=== PATIENT | female | born 1940 | race Native Hawaiian/Other Pacific Islander ===

== ENCOUNTER 2016-02-25 14:12 | Emergency (ER) | payer OTHER ==
[~2016-02-25] VITALS: Ht 157.5 cm; Wt 59.0 kg
[2016-02-25 14:37] LABS: PLATELET COUNT 202 K/uL (152-353)
[2016-02-25 14:45] LABS: POTASSIUM 4.2 mmol/L (3.6-5.2); SODIUM 136 mmol/L (136-145)
[2016-02-25 16:30] LABS: PARTIAL THROMBOPLASTIN TIME 31.9 SECONDS (24.5-33.6)
[2016-02-25 16:45] VITALS: BP 145/74; TEMP 98
== END 2016-02-25 16:55 | disposition home or self-care (01) ==
LOC: ED 14:12
DX: R55 Syncope and collapse (principal)
CPT/HCPCS: 36415; 80053; 82550; 84484; 85027; 85610; 85730; 93005; 99284

== ENCOUNTER 2016-03-02 08:51 | Outpatient (CLI) | payer OTHER ==
[2016-03-02 09:11] LABS: PLATELET COUNT 190 K/uL (152-353)
[2016-03-02 09:37] LABS: POTASSIUM 4.5 mmol/L (3.6-5.2)
== END 2016-03-02 20:47 | disposition home or self-care (01) ==
LOC: LABW 08:51
PROVIDERS: Internal Medicine Nephrology
DX: I12.9 Hypertensive chronic kidney disease with stage 1 through stage 4 chronic kidney disease, or unspecified chronic kidney disease (principal); N18.3 Chronic kidney disease, stage 3 (moderate); E78.4 Other hyperlipidemia; Z09 Encounter for follow-up examination after completed treatment for conditions other than malignant neoplasm
CPT/HCPCS: 36415; 80048; 80061; 80076; 84100; 85027

== ENCOUNTER 2016-05-21 09:14 | Outpatient (CLI) | payer OTHER ==
[2016-05-21 11:26] LABS: POTASSIUM 4.6 mmol/L (3.6-5.2)
== END 2016-05-21 19:11 | disposition home or self-care (01) ==
LOC: LABW 09:14
PROVIDERS: Internal Medicine Nephrology
DX: N18.3 Chronic kidney disease, stage 3 (moderate) (principal)
CPT/HCPCS: 36415; 80048

== ENCOUNTER 2016-05-31 08:13 | Outpatient (CLI) | payer OTHER | END 2016-05-31 19:30 | disposition home or self-care (01) | LOC: LABW 08:13 | DX: E01.8 Other iodine-deficiency related thyroid disorders and allied conditions (principal) | CPT/HCPCS: 36415; 84439; 84443 ==

== ENCOUNTER 2016-09-17 08:17 | Outpatient (CLI) | payer OTHER ==
[2016-09-17 10:06] LABS: PLATELET COUNT 180 K/uL (152-353)
[2016-09-17 10:44] LABS: POTASSIUM 3.6 mmol/L (3.6-5.2)
== END 2016-09-17 19:19 | disposition home or self-care (01) ==
LOC: LABW 08:17
PROVIDERS: Internal Medicine Cardiovascular Disease
DX: N18.3 Chronic kidney disease, stage 3 (moderate) (principal); N25.81 Secondary hyperparathyroidism of renal origin; E78.4 Other hyperlipidemia; Z09 Encounter for follow-up examination after completed treatment for conditions other than malignant neoplasm; E03.8 Other specified hypothyroidism
CPT/HCPCS: 36415; 80048; 80061; 80076; 83970; 84439; 84443; 85027

== ENCOUNTER 2016-11-21 08:26 | Outpatient (CLI) | payer OTHER | END 2016-11-21 21:12 | disposition home or self-care (01) | LOC: LABW 08:26 | DX: E03.8 Other specified hypothyroidism (principal) | CPT/HCPCS: 36415; 84439; 84443 ==

== ENCOUNTER 2016-12-17 09:19 | Outpatient (CLI) | payer OTHER ==
[2016-12-17 10:22] LABS: POTASSIUM 3.9 mmol/L (3.6-5.2)
[2016-12-17 10:32] LABS: PLATELET COUNT 179 K/uL (152-353)
== END 2016-12-17 10:20 | disposition home or self-care (01) ==
LOC: LABW 09:19
PROVIDERS: Internal Medicine Nephrology
DX: N18.3 Chronic kidney disease, stage 3 (moderate) (principal); N25.81 Secondary hyperparathyroidism of renal origin
CPT/HCPCS: 36415; 80048; 82040; 82306; 84100; 85027

== ENCOUNTER 2017-03-22 08:43 | Outpatient (CLI) | payer OTHER ==
[2017-03-22 09:43] LABS: PLATELET COUNT 193 K/uL (152-353)
[2017-03-22 10:45] LABS: POTASSIUM 3.8 mmol/L (3.6-5.2)
== END 2017-03-22 21:04 | disposition home or self-care (01) ==
LOC: LABW 08:43
PROVIDERS: Internal Medicine Nephrology
DX: N18.3 Chronic kidney disease, stage 3 (moderate) (principal); E78.00 Pure hypercholesterolemia, unspecified
CPT/HCPCS: 36415; 80053; 80061; 81000; 82570; 84100; 84155; 85027

== ENCOUNTER 2017-06-17 08:09 | Outpatient (CLI) | payer OTHER | END 2017-06-17 18:51 | disposition home or self-care (01) | LOC: LABW 08:09 | PROVIDERS: Internal Medicine Nephrology | DX: N18.3 Chronic kidney disease, stage 3 (moderate) (principal); E78.2 Mixed hyperlipidemia | CPT/HCPCS: 36415; 80048; 80061; 82040; 82306; 83970; 84100 ==

== ENCOUNTER 2017-09-16 08:50 | Outpatient (CLI) | payer OTHER ==
[2017-09-16 09:39] LABS: PLATELET COUNT 172 K/uL (152-353)
[2017-09-16 09:58] LABS: POTASSIUM 3.8 mmol/L (3.6-5.2)
== END 2017-09-16 19:36 | disposition home or self-care (01) ==
LOC: LABW 08:50
PROVIDERS: Internal Medicine Nephrology
DX: N18.3 Chronic kidney disease, stage 3 (moderate) (principal); E78.2 Mixed hyperlipidemia; D64.9 Anemia, unspecified
CPT/HCPCS: 36415; 80048; 80061; 80076; 84443; 85027

== ENCOUNTER 2017-10-29 08:57 | Outpatient (CLI) | payer OTHER | END 2017-10-29 22:25 | disposition home or self-care (01) | LOC: RAD 08:57 | DX: M81.0 Age-related osteoporosis without current pathological fracture (principal) ==

== ENCOUNTER 2018-01-17 08:08 | Outpatient (CLI) | payer OTHER ==
[2018-01-17 08:31] LABS: POTASSIUM 4.3 mmol/L (3.6-5.2)
== END 2018-01-17 22:51 | disposition home or self-care (01) ==
LOC: LABW 08:08
PROVIDERS: Internal Medicine Nephrology
DX: N18.3 Chronic kidney disease, stage 3 (moderate) (principal)
CPT/HCPCS: 36415; 80048; 82040; 84100

== ENCOUNTER 2018-05-19 08:39 | Outpatient (CLI) | payer OTHER ==
[2018-05-19 09:08] LABS: PLATELET COUNT 172 K/uL (152-353)
[2018-05-19 09:28] LABS: POTASSIUM 4.5 mmol/L (3.6-5.2)
== END 2018-05-19 22:55 | disposition home or self-care (01) ==
LOC: LABW 08:39
PROVIDERS: Internal Medicine Nephrology
DX: N18.3 Chronic kidney disease, stage 3 (moderate) (principal); I48.91 Unspecified atrial fibrillation; E78.2 Mixed hyperlipidemia
CPT/HCPCS: 36415; 80048; 81000; 82040; 82570; 84100; 84155; 85027

== ENCOUNTER 2018-06-02 08:40 | Outpatient (CLI) | payer OTHER ==
[2018-06-02 09:01] LABS: POTASSIUM 4.5 mmol/L (3.6-5.2)
== END 2018-06-02 19:30 | disposition home or self-care (01) ==
LOC: LABW 08:40
PROVIDERS: Internal Medicine Nephrology
DX: N18.3 Chronic kidney disease, stage 3 (moderate) (principal)
CPT/HCPCS: 36415; 80048

== ENCOUNTER 2018-06-05 11:22 | Outpatient (CLI) | payer OTHER | END 2018-06-05 21:05 | disposition home or self-care (01) | LOC: US 11:22 | DX: M79.89 Other specified soft tissue disorders (principal) ==

== ENCOUNTER 2018-10-06 08:11 | Outpatient (CLI) | payer OTHER ==
[2018-10-06 08:46] LABS: POTASSIUM 4.4 mmol/L (3.6-5.2)
[2018-10-06 08:53] LABS: PLATELET COUNT 156 K/uL (152-353)
== END 2018-10-06 23:59 | disposition home or self-care (01) ==
LOC: LABW 08:11
PROVIDERS: Internal Medicine Cardiovascular Disease
DX: Z09 Encounter for follow-up examination after completed treatment for conditions other than malignant neoplasm (principal); N18.3 Chronic kidney disease, stage 3 (moderate); E78.49 Other hyperlipidemia; E01.8 Other iodine-deficiency related thyroid disorders and allied conditions
CPT/HCPCS: 36415; 80048; 80061; 80076; 84443; 85027

== ENCOUNTER 2019-01-12 08:32 | Outpatient (CLI) | payer OTHER ==
[2019-01-12 09:26] LABS: POTASSIUM 3.7 mmol/L (3.6-5.2)
== END 2019-01-12 20:50 | disposition home or self-care (01) ==
LOC: LABW 08:32
PROVIDERS: Internal Medicine Nephrology
DX: N18.3 Chronic kidney disease, stage 3 (moderate) (principal)
CPT/HCPCS: 36415; 80048

== ENCOUNTER 2019-04-10 09:26 | Outpatient (CLI) | payer OTHER | END 2019-04-10 19:09 | disposition home or self-care (01) | LOC: LABW 09:26 | PROVIDERS: Internal Medicine Cardiovascular Disease | DX: E78.49 Other hyperlipidemia (principal); I10 Essential (primary) hypertension; Z09 Encounter for follow-up examination after completed treatment for conditions other than malignant neoplasm | CPT/HCPCS: 36415; 80061; 80076 ==

== ENCOUNTER 2019-11-24 10:51 | Outpatient (CLI) | payer OTHER | END 2019-11-24 19:10 | disposition home or self-care (01) | LOC: LABW 10:51 | DX: I48.91 Unspecified atrial fibrillation (principal); Z79.01 Long term (current) use of anticoagulants | CPT/HCPCS: 36415; 85610 ==

== ENCOUNTER 2020-08-31 08:49 | Outpatient (CLI) | payer OTHER | END 2020-08-31 19:32 | disposition home or self-care (01) | LOC: LABW 08:49 | PROVIDERS: ATTEND Internal Medicine Nephrology | DX: N18.31 Chronic kidney disease, stage 3a (principal); I12.9 Hypertensive chronic kidney disease with stage 1 through stage 4 chronic kidney disease, or unspecified chronic kidney disease; R78.2 Finding of cocaine in blood; R60.0 Localized edema | CPT/HCPCS: 36415; 80053; 82306; 82570; 83970; 84100; 84155 ==

== ENCOUNTER 2021-02-15 09:01 | Outpatient (CLI) | payer OTHER ==
[2021-02-15 10:12] LABS: POTASSIUM 4.6 mmol/L (3.6-5.2)
== END 2021-02-15 19:56 | disposition home or self-care (01) ==
LOC: LABW 09:01
PROVIDERS: ATTEND Internal Medicine Nephrology
DX: N18.31 Chronic kidney disease, stage 3a (principal); I12.9 Hypertensive chronic kidney disease with stage 1 through stage 4 chronic kidney disease, or unspecified chronic kidney disease; I48.0 Paroxysmal atrial fibrillation; E78.2 Mixed hyperlipidemia; R73.9 Hyperglycemia, unspecified
CPT/HCPCS: 36415; 80048; 82040

== ENCOUNTER 2021-04-06 08:45 | Outpatient (CLI) | payer OTHER | END 2021-04-06 19:12 | disposition home or self-care (01) | LOC: LABW 08:45 | PROVIDERS: ATTEND Internal Medicine Cardiovascular Disease | DX: E78.49 Other hyperlipidemia (principal); Z09 Encounter for follow-up examination after completed treatment for conditions other than malignant neoplasm | CPT/HCPCS: 36415; 80061; 80076 ==

== ENCOUNTER 2021-04-20 09:59 | Outpatient (CLI) | payer OTHER | END 2021-04-20 21:04 | disposition home or self-care (01) | LOC: MAMMO 09:59 | PROVIDERS: ATTEND Internal Medicine | DX: Z12.31 Encounter for screening mammogram for malignant neoplasm of breast (principal) ==

== ENCOUNTER 2021-05-17 09:38 | Outpatient (CLI) | payer OTHER ==
[2021-05-17 10:03] LABS: PLATELET COUNT 136 K/uL (152-353)
[2021-05-17 10:11] LABS: POTASSIUM 4.6 mmol/L (3.6-5.2)
== END 2021-05-17 19:09 | disposition home or self-care (01) ==
LOC: LABW 09:38
PROVIDERS: ATTEND Internal Medicine Nephrology
DX: I12.9 Hypertensive chronic kidney disease with stage 1 through stage 4 chronic kidney disease, or unspecified chronic kidney disease (principal); N18.31 Chronic kidney disease, stage 3a; I48.0 Paroxysmal atrial fibrillation; E78.2 Mixed hyperlipidemia; R73.9 Hyperglycemia, unspecified
CPT/HCPCS: 36415; 80053; 80061; 81000; 82043; 82306; 82570; 83970; 84100; 85027

== ENCOUNTER 2021-09-13 08:05 | Outpatient (CLI) | payer OTHER ==
[2021-09-13 08:20] LABS: PLATELET COUNT 155 K/uL (152-353)
[2021-09-13 08:40] LABS: POTASSIUM 3.8 mmol/L (3.6-5.2)
== END 2021-09-13 18:50 | disposition home or self-care (01) ==
LOC: LABW 08:05
PROVIDERS: ATTEND Internal Medicine Nephrology
DX: I12.9 Hypertensive chronic kidney disease with stage 1 through stage 4 chronic kidney disease, or unspecified chronic kidney disease (principal); N18.31 Chronic kidney disease, stage 3a; I48.0 Paroxysmal atrial fibrillation; E78.2 Mixed hyperlipidemia; R73.9 Hyperglycemia, unspecified; R60.0 Localized edema
CPT/HCPCS: 36415; 80053; 83036; 85027

== ENCOUNTER 2022-01-16 09:38 | Outpatient (CLI) | payer OTHER ==
[2022-01-16 10:56] LABS: POTASSIUM 4.1 mmol/L (3.6-5.2)
== END 2022-01-16 19:36 | disposition home or self-care (01) ==
LOC: LABW 09:38
PROVIDERS: ATTEND Internal Medicine Nephrology
DX: N18.31 Chronic kidney disease, stage 3a (principal); I12.9 Hypertensive chronic kidney disease with stage 1 through stage 4 chronic kidney disease, or unspecified chronic kidney disease; E78.2 Mixed hyperlipidemia; R73.03 Prediabetes
CPT/HCPCS: 36415; 80053

== ENCOUNTER 2022-04-11 09:08 | Outpatient (CLI) | payer OTHER | END 2022-04-11 19:13 | disposition home or self-care (01) | LOC: LABW 09:08 | PROVIDERS: ATTEND Internal Medicine Cardiovascular Disease | DX: E78.49 Other hyperlipidemia (principal); Z09 Encounter for follow-up examination after completed treatment for conditions other than malignant neoplasm | CPT/HCPCS: 36415; 80061; 80076 ==

== ENCOUNTER 2022-04-30 09:53 | Outpatient (CLI) | payer OTHER | END 2022-04-30 21:30 | disposition home or self-care (01) | LOC: MAMMO 09:53 | PROVIDERS: ATTEND Internal Medicine | DX: Z12.31 Encounter for screening mammogram for malignant neoplasm of breast (principal) ==

== ENCOUNTER 2022-05-16 08:56 | Outpatient (CLI) | payer OTHER ==
[2022-05-16 09:24] LABS: PLATELET COUNT 158 K/uL (152-353)
[2022-05-16 09:42] LABS: POTASSIUM 4.3 mmol/L (3.6-5.2)
== END 2022-05-16 17:00 | disposition home or self-care (01) ==
LOC: LABW 08:56
PROVIDERS: ATTEND Internal Medicine Nephrology
DX: I12.9 Hypertensive chronic kidney disease with stage 1 through stage 4 chronic kidney disease, or unspecified chronic kidney disease (principal); N18.32 Chronic kidney disease, stage 3b; I48.0 Paroxysmal atrial fibrillation; E78.2 Mixed hyperlipidemia; R73.03 Prediabetes
CPT/HCPCS: 36415; 80053; 80061; 82043; 82306; 83036; 83970; 85027

== ENCOUNTER 2022-09-13 09:03 | Outpatient (CLI) | payer OTHER ==
[2022-09-13 09:25] LABS: PLATELET COUNT 149 K/uL (152-353)
[2022-09-13 09:35] LABS: POTASSIUM 3.9 mmol/L (3.6-5.2)
== END 2022-09-13 20:35 | disposition home or self-care (01) ==
LOC: LABW 09:03
PROVIDERS: ATTEND Internal Medicine Nephrology
DX: I12.9 Hypertensive chronic kidney disease with stage 1 through stage 4 chronic kidney disease, or unspecified chronic kidney disease (principal); N18.32 Chronic kidney disease, stage 3b; I48.0 Paroxysmal atrial fibrillation; E78.2 Mixed hyperlipidemia; R73.03 Prediabetes
CPT/HCPCS: 36415; 80053; 85027

== ENCOUNTER 2022-10-17 08:50 | Outpatient (CLI) | payer OTHER ==
[2022-10-17 09:37] LABS: POTASSIUM 4.4 mmol/L (3.6-5.2)
== END 2022-10-17 18:58 | disposition home or self-care (01) ==
LOC: LABW 08:50
PROVIDERS: ATTEND Internal Medicine Nephrology
DX: I12.9 Hypertensive chronic kidney disease with stage 1 through stage 4 chronic kidney disease, or unspecified chronic kidney disease (principal); N18.31 Chronic kidney disease, stage 3a; I48.0 Paroxysmal atrial fibrillation; E78.2 Mixed hyperlipidemia; R73.03 Prediabetes
CPT/HCPCS: 36415; 80053